=== PATIENT | male | born 1990 | race African-American/Black ===

== ENCOUNTER 2016-10-20 22:37 | Inpatient (IN) | payer MEDICAID, OTHER ==
[~2016-10-20] VITALS: Ht 188 cm; Wt 117.2 kg
[~2016-10-20 22:37] MED LIST: CLON.1 PO; FLUO20CA30 PO; FOLI1 PO; MULT-1238 PO; OLAN10TA6 PO; THIA100 PO
[2016-10-20] MEDS ORDERED: HALOPERIDOL LACTATE 5 MG/ML VIAL IM ONE (23:45)
[2016-10-20] MEDS ORDERED: DiphenhydrAMINE HCL 50 MG/ML VIAL IM ONE (23:45)
[2016-10-20] MEDS ORDERED: LORazepam 2 MG/ML VIAL IM ONE (23:45)
[2016-10-20] MEDS ORDERED: LORA10TA7 PO (23:49)
[2016-10-20] MEDS ORDERED: LISI-618 PO (23:49)
[2016-10-21] MEDS ORDERED: ACETAMINOPHEN 325 MG TABLET PO PRN (00:15)
[2016-10-21] MEDS ORDERED: ZOLPIDEM TARTRATE 10 MG TABLET PO PRN (00:15)
[2016-10-21] MEDS ORDERED: MAGNESIUM HYDROXIDE SUSPENSION 30 ML UDCUP PO PRN (00:15)
[2016-10-21 01:08] LABS: BASOPHILS # (AUTO) 0.04 K/uL (0.00-0.20); BASOPHILS % (AUTO) 0.8 % (0.0-2.0); EOSINOPHILS # (AUTO) 0.03 K/uL (0.00-0.70); HEMATOCRIT 42.9 % (41-53); HEMOGLOBIN 14.4 g/dL (13.5-17.5); LYMPHOCYTES % (AUTO) 18.2 % (22.0-44.0); MEAN CORPUSCULAR HGB CONC 33.5 G/dL (31.0-37.0); MEAN CORPUSCULAR VOLUME 86 fL (80-100); MONOCYTES # (AUTO) 0.5 K/uL (0.1-1.0); MONOCYTES % (AUTO) 8.9 % (2.0-9.0); NEUTROPHILS # (AUTO) 3.7 K/uL (1.8-7.7); NEUTROPHILS % (AUTO) 71.5 % (40.0-70.0); PLATELET COUNT (AUTO) 359 K/uL (150-450); RED BLOOD CELL COUNT(AUTO) 4.96 MIL/uL (4.50-5.90); RED CELL DISTRIBUTION WIDTH 14.5 % (11.5-14.5); WHITE BLOOD COUNT (AUTO) 5.2 K/uL (4.5-11.0)
[2016-10-21 01:19] LABS: ANION GAP 9 mmol/L (8-16); CALCIUM, TOTAL 9.5 mg/dL (8.8-10.5); CARBON DIOXIDE 28 mmol/L (22-29); CHLORIDE 103 mmol/L (98-107); CREATININE 1.19 mg/dL (0.60-1.30); GLOMERULAR FILTR. RATE CALC > 60 mL/min (>60); POTASSIUM 3.6 mmol/L (3.5-5.1); SODIUM SERUM 140 mmol/L (136-145); UREA NITROGEN, BLOOD 12 mg/dL (7-18)
[2016-10-21 01:26] LABS: ALANINE AMINOTRANSFERASE 35 U/L (12-78); ASPARTATE AMINOTRANSFERASE 27 U/L (15-37); BILIRUBIN,TOTAL 0.6 mg/dL (0.1-1.0); TOTAL PROTEIN, SERUM 7.8 g/dL (6.4-8.2)
[2016-10-21] MEDS: LORazepam 2 MG TABLET PO PRN (17:26)
[2016-10-22] MEDS ORDERED: PNEUMOCOCCAL VACCINE POLYVALENT 0.5 ML VIAL [PPSV23] IM ONE (00:45)
[2016-10-22] MEDS ORDERED: INFLUENZA VIRUS VACCINE QVS 2016-17 (3YR+)/PF 60 MCG/0.5 ML SYRINGE IM ONE (00:45)
[2016-10-22 00:48] VITALS: BP 110/66
[2016-10-22 08:46] VITALS: BP 126/71
[2016-10-22] MEDS: LORazepam 2 MG TABLET PO PRN (14:38)
[2016-10-22] MEDS: HALOPERIDOL 5 MG TABLET PO PRN (14:38)
[2016-10-22] MEDS ORDERED: DiphenhydrAMINE HCL 50 MG/ML VIAL IM ONE (15:00)
[2016-10-22] MEDS ORDERED: HALOPERIDOL LACTATE 5 MG/ML VIAL IM ONE (15:00)
[2016-10-22] MEDS ORDERED: LORazepam 2 MG/ML VIAL IM ONE (15:00)
[2016-10-22] MEDS ORDERED: LORazepam 2 MG/ML VIAL ONE (15:04)
[2016-10-22] MEDS ORDERED: DiphenhydrAMINE HCL 50 MG/ML VIAL ONE (15:05)
[2016-10-22] MEDS ORDERED: HALOPERIDOL LACTATE 5 MG/ML VIAL ONE (15:05)
[2016-10-22 19:26] VITALS: BP 123/60
[2016-10-23 09:20] VITALS: BP 139/85
[2016-10-23] MEDS: BENZTROPINE MESYLATE 0.5 MG TABLET PO SCH ×2 (09:22→17:32)
[2016-10-23] MEDS: HALOPERIDOL 5 MG TABLET PO SCH ×2 (09:22→17:32)
[2016-10-23] MEDS: LORazepam 2 MG TABLET PO PRN (12:35)
[2016-10-23] MEDS: HALOPERIDOL 5 MG TABLET PO PRN (12:36)
[2016-10-23 17:03] VITALS: BP 114/74
[2016-10-23] MEDS ORDERED: SERTRALINE HCL 50 MG TABLET PO SCH (21:00)
[2016-10-24 08:30] VITALS: BP 118/66
[2016-10-24] MEDS: BENZTROPINE MESYLATE 0.5 MG TABLET PO SCH (08:42)
[2016-10-24] MEDS: HALOPERIDOL 5 MG TABLET PO SCH (08:42)
[2016-10-24] MEDS ORDERED: HALO5 PO (09:35)
[2016-10-24] MEDS ORDERED: BENZ0.5T6 PO (09:35)
[2016-10-24] MEDS ORDERED: SERT50TA12 PO (09:36)
== END 2016-10-24 14:34 | disposition home or self-care (01) | DRG 750 ==
LOC: EMS 22:40 → 3EI 10-21 19:55
PROVIDERS: ADMIT Psychiatry & Neurology Psychiatry; ATTEND Psychiatry & Neurology Psychiatry
DX: F25.0 Schizoaffective disorder, bipolar type (principal); R45.851 Suicidal ideations; F41.9 Anxiety disorder, unspecified; F17.210 Nicotine dependence, cigarettes, uncomplicated; Z79.899 Other long term (current) drug therapy; Z28.21 Immunization not carried out because of patient refusal
CPT/HCPCS: 96372; 99291; G0480; J1200; J1630; J2060